=== PATIENT | female | born 1950 | race Caucasian/White ===

== ENCOUNTER → 2021-06-23 12:23 | Outpatient (CLI) | payer MEDICARE, OTHER, SELFPAY ==
--- NOTE | 2021-06-23 12:26 | DI.MRI.S_ITS ---
PROCEDURE: MR LUMBAR SPINE WO CON INDICATIONS: Spinal stenosis, lumbar region with neurogenic cla TECHNIQUE: Noncontrast sagittal T1 spin echo and T2 fast echo, sagittal STIR, axial T1 and T2 fast spin echo through the lumbar spine. In cases with scoliosis, additional coronal T2 fast spin echo may be performed. COMPARISON: None. FINDINGS: Moderate lumbar levoscoliosis with associated lateral listhesis is redemonstrated, better depicted on prior radiographs. Anterolisthesis of L3 on L4 measuring 3 millimeters and of L4 on L5 measuring 3 millimeters appears similar. Vertebral body heights maintained. No suspicious focal marrow signal abnormality. Mild discogenic marrow edema (Modic type 1 changes) at the opposing L1-L2 endplates. Normal position and appearance of the conus. Prevertebral and paraspinous soft tissues unremarkable. T12-L1: No spinal canal or neural foraminal stenosis. L1-L2: Disc bulge flattens the ventral thecal sac and mildly displaces the descending right L2 nerve roots within the right subarticular zone. Bulky facet hypertrophy and buckling of the ligamentum flavum further contribute to right subarticular zone stenosis. Foraminal components of the disc bulge and facet hypertrophy combine to produce moderate right and mild left neural foraminal stenosis. L2-L3: Bulky facet hypertrophy with facet effusions and subchondral cystic change. Disc bulge flattens the ventral thecal sac without mass effect upon the traversing L3 nerve roots. Foraminal components of the disc bulge and facet hypertrophy combine to produce mild bilateral neural foraminal stenosis. L3-L4: Disc bulge flattens the ventral thecal sac without mass effect upon the traversing L4 nerve roots. Foraminal components of the disc bulge and facet hypertrophy combine to produce severe right and mild left neural foraminal stenosis. Flattening of the exiting right L3 nerve root in the neural foramen. Bulky facet hypertrophy with subchondral cystic change. L4-L5: Disc bulge flattens and indents the ventral thecal sac with displacement of the descending L5 nerve roots in both subarticular zones. Bulky facet hypertrophy and buckling flavum further contribute to overall moderate spinal canal and severe subarticular zone stenosis. There is probable impingement of the descending left L5 nerve roots in the left subarticular zone due to effacement by disc and facet material. Foraminal components of the disc bulge and facet hypertrophy combine to produce severe left right neural foraminal stenosis. Flattening of the exiting left L4 nerve roots within the neural foramen. Small facet effusions and subchondral cystic change noted. There is also a synovial cyst arising from the medial margin of the left L4-L5 facet projecting into the left subarticular zone, measuring approximately 5 millimeters. L5-S1: No spinal canal stenosis. Mild right and severe left neural foraminal narrowing due to foraminal components of a diffuse disc bulge with flattening of the exiting left L5 nerve root. IMPRESSION: Multilevel multifactorial degenerative changes with considerable contribution from facet hypertrophy at multiple levels. Severe neural foraminal stenosis at multiple levels as described above. Moderate spinal canal stenosis at L4-L5. Dictated by: Tung Delgado M.D. on 06/23/2021 at 12:35 Approved by: Tung Delgado M.D. on 06/23/2021 at 12:43
== END ==
PROVIDERS: Family Provider Family Medicine; Referring Provider Physical Medicine & Rehabilitation; Visit Provider Physical Medicine & Rehabilitation
DX: M48.062 Spinal stenosis, lumbar region with neurogenic claudication (principal); M47.816 Spondylosis without myelopathy or radiculopathy, lumbar region
CPT/HCPCS: 72148

== ENCOUNTER → 2022-01-28 11:58 | Outpatient (CLI) | payer MEDICARE, OTHER, SELFPAY ==
--- NOTE | 2022-01-28 12:00 | DI.US.S_ITS ---
PROCEDURE: US THYROID INDICATIONS: POSSIBLE NODULE TECHNIQUE: Real-time scanning was performed of the thyroid gland, with image documentation. COMPARISON: [facility], US, THYROID, 04/24/2014, 13:51. FINDINGS: Right: Thyroid lobe measures 2.3 x 0.6 x 0.7 cm, and is diffusely heterogeneous in echotexture. Left: Thyroid lobe measures 2.6 x 0.7 x 0.5 cm, and is sleep heterogeneous in echotexture. Isthmus: 1.1 mm thick. IMPRESSION: 1. Diffusely diminutive/atrophic thyroid gland with morphology suggestive of exogenous thyroid hormone administration versus chronic longstanding thyroiditis. 2. No focal nodule. ACR TI-RADS definitions and recommendations: TI-RADS 1 (benign): 0 points. FNA not needed. TI-RADS 2 (not suspicious): 2 points. FNA not needed. TI-RADS 3 (mildly suspicious): 3 points. * FNA if 2.5 cm or larger, follow up if 1.5 cm or larger (at 1, 3, and 5 years). TI-RADS 4 (moderately suspicious): 4-6 points. * FNA if 1.5 cm or larger, follow up if 1 cm or larger (at 1, 2, 3, and 5 years). TI-RADS 5 (highly suspicious): 7 points or more. * FNA if 1 cm or larger, follow up if 0.5 cm or larger (every year for 5 years). Dictated by: Mabel Arias M.D. on 01/28/2022 at 16:51 Approved by: Mabel Arias M.D. on 01/28/2022 at 16:53
== END ==
PROVIDERS: Family Provider Family Medicine; Referring Provider Internal Medicine; Visit Provider Internal Medicine
DX: E03.9 Hypothyroidism, unspecified (principal); E04.1 Nontoxic single thyroid nodule
CPT/HCPCS: 76536

== ENCOUNTER → 2022-08-17 12:41 | Outpatient (ROUT) | payer MEDICARE, OTHER, SELFPAY ==
[2022-08-17 13:23] LABS: COVID-19 CEPHEID 4-PLEX PCR Negative (Negative); Influenza A - CEPHEID Flu A NEGATIVE (NEGATIVE); Influenza B - CEPHEID Flu B NEGATIVE (NEGATIVE); Respiratory Syncytial Virus Negative (Negative)
== END ==
PROVIDERS: Family Provider Family Medicine; Visit Provider Internal Medicine
DX: R05.9 Cough, unspecified (principal); J02.9 Acute pharyngitis, unspecified; R50.9 Fever, unspecified
CPT/HCPCS: 0241U

== ENCOUNTER → 2022-10-04 09:02 | Outpatient (CLI) | payer MEDICARE, OTHER, SELFPAY ==
--- NOTE | 2022-10-04 09:05 | DI.MRI.S_ITS ---
PROCEDURE: MR SHOULDER LT WO CON INDICATIONS: Unspecified rotator cuff tear or rupture TECHNIQUE: Noncontrast oblique coronal T2 fast spin echo with fat saturation, oblique sagittal T1 spin echo and T2 fast spin echo with fat saturation, axial T1 spin echo and T2 fast spin echo with fat saturation through the shoulder. COMPARISON: Non. FINDINGS: Image quality: Excellent. Rotator cuff: There is full-thickness tear of the supraspinatus and infraspinatus tendons with tendon retraction to the musculotendinous junction. There is moderate supraspinatus and infraspinatus tendons muscle atrophy. There is at least high-grade partial tear of the subscapularis tendon with severe tendinosis. Bones and bursae: No bone marrow contusions or fractures. Moderate acromioclavicular and glenohumeral joint degeneration. The acromion demonstrates conventional anatomy, without an os acromiale. There is moderate glenohumeral joint effusion. Capsule and soft tissues: There is global degenerative labral tear, most pronounced in the superior and posterior labrum. Tear of the transverse ligament at the bicipital groove. Moderate tendinosis of the long head of the biceps tendon which is dislocated anterior medially. The rotator interval is irregular. The coracohumeral ligament is thickened. IMPRESSION: 1. Full-thickness tear of the supraspinatus and infraspinatus tendons with tendon retraction and muscle atrophy. 2. At least high-grade partial tear and severe tendinosis of the subscapularis tendon. 3. Moderate tendinosis of the long head of the biceps tendon which is dislocated anterior medially. 4. Moderate acromioclavicular and glenohumeral joint degeneration. 5. Moderate glenohumeral joint effusion. 6. Global degenerative labral tear. Dictated by: Alhaji Nicole M.D. on 10/05/2022 at 7:53 Approved by: Alhaji Nicole M.D. on 10/05/2022 at 9:22
== END ==
PROVIDERS: Family Provider Family Medicine; Referring Provider Internal Medicine; Visit Provider Internal Medicine
DX: M75.122 Complete rotator cuff tear or rupture of left shoulder, not specified as traumatic (principal); M19.012 Primary osteoarthritis, left shoulder; M25.412 Effusion, left shoulder; S43.492A Other sprain of left shoulder joint, initial encounter
CPT/HCPCS: 73221

== ENCOUNTER → 2023-04-07 12:25 | Outpatient (CLI) | payer MEDICARE, OTHER, SELFPAY ==
--- NOTE | 2023-04-07 12:26 | DI.CT.S_ITS ---
PROCEDURE: CT CHEST W CON INDICATIONS: Chest wall pain TECHNIQUE: After the administration of intravenous contrast, 5 mm thick sections acquired from the pulmonary apices to the posterior costophrenic angles. 1 mm axial lung, 5 mm thick coronal and sagittal reformats and 7 mm axial MIP were acquired. For radiation dose reduction, the following was used: automated exposure control, adjustment of mA and/or kV according to patient size. COMPARISON: [facility], RG, XR RIBS UNILATERAL, 03/31/2023, 12:30. FINDINGS: Lungs and pleura: No consolidation , pleural effusion, or pneumothorax. A few pulmonary nodules are present for example 3 millimeter solid nodule inferior right upper lobe (3/127). 4 millimeter lingular nodule (3/141). Mediastinum: No pericardial effusion. No mediastinal or hilar adenopathy by size criteria. Thoracic aorta and central pulmonary arteries are normal in size. Esophagus is normal in caliber. Bones and chest wall: Multilevel degenerative change of the visualized spine. No acute displaced rib fracture identified. The lateral and anterior aspect of the left 11th rib is excluded from the field of view. The 12th rib is hypoplastic. No axillary or supraclavicular adenopathy by size criteria. Postsurgical changes of the left breast. The breasts are not well evaluated by CT. Abdomen: Visualized upper abdominal solid organs appear normal. Upper abdominal bowel loops are normal in caliber. IMPRESSION: 1. No acute displaced rib fracture identified. No pneumothorax. 2. A few small pulmonary nodules are present, nonspecific. Could consider imaging follow-up in 3-6 months or other interval at clinical discretion. Dictated by: Dev Hull M.D. on 04/08/2023 at 9:39 Approved by: Dev Hull M.D. on 04/08/2023 at 9:57
[2023-04-07 13:39] LABS: Estimated Glomerular Filt Rate > 60 mL/min (>60)
== END ==
PROVIDERS: Radiology Diagnostic Radiology; Family Provider Family Medicine; PCP Internal Medicine; Referring Provider Internal Medicine Medical Oncology; Visit Provider Internal Medicine Medical Oncology
DX: R07.9 Chest pain, unspecified (principal); R93.89 Abnormal findings on diagnostic imaging of other specified body structures; R91.8 Other nonspecific abnormal finding of lung field
CPT/HCPCS: 36415; 71260; 82565

== ENCOUNTER → 2023-04-20 14:19 | Outpatient (CLI) | payer MEDICARE, OTHER, SELFPAY ==
--- NOTE | 2023-04-20 14:24 | DI.RAD.S_ITS ---
PROCEDURE: XR FACIAL BONES MIN 3V INDICATIONS: facial injury TECHNIQUE: 3 views of the facial bones were acquired. COMPARISON: None. FINDINGS: Sinuses: Visualized sinuses demonstrate no air-fluid levels or mucosal thickening. Bones: No fractures. No suspicious bony lesions. Orbital rims and zygomatic arches appear intact. Soft tissues: No suspicious soft tissue densities. IMPRESSION: No displaced facial fracture. No If symptoms and/or clinical suspicion for injury/pathology persists, further assessment with CT should be considered. Dictated by: Tonya Cortés MD, PhD on 04/20/2023 at 15:23 Approved by: Tonya Cortés MD, PhD on 04/20/2023 at 15:24
== END ==
PROVIDERS: Family Provider Family Medicine; PCP Internal Medicine; Referring Provider Internal Medicine; Visit Provider Internal Medicine
DX: S09.93XA Unspecified injury of face, initial encounter (principal); X58.XXXA Exposure to other specified factors, initial encounter
CPT/HCPCS: 70150

== ENCOUNTER → 2023-06-29 11:29 | Outpatient (CLI) | payer MEDICARE, OTHER, SELFPAY ==
--- NOTE | 2023-06-29 | DI.RAD.S_ITS ---
PROCEDURE: XR CHEST 2V INDICATIONS: COUGH TECHNIQUE: 2 views of the chest were acquired. COMPARISON: [facility], CT, CT CHEST W CON, 04/07/2023, 13:51. FINDINGS: Surgical changes and devices: Clips are present overlying the left hemithorax. Lungs and pleura: Lungs are clear. No pleural effusions or pneumothorax. Mediastinum: Mediastinal contours are normal. Heart size is normal. Bones and chest wall: No suspicious bony abnormalities. Soft tissues appear unremarkable. Scoliotic curvature. IMPRESSION: No acute pulmonary process. Dictated by: Kaye Hinojosa M.D. on 06/29/2023 at 17:42 Approved by: Kaye Hinojosa M.D. on 06/29/2023 at 17:43
== END ==
PROVIDERS: Family Provider Family Medicine; PCP Internal Medicine; Referring Provider Internal Medicine; Visit Provider Internal Medicine
DX: R05.1 Acute cough (principal); B34.9 Viral infection, unspecified
CPT/HCPCS: 71046

== ENCOUNTER → 2023-08-10 14:27 | Outpatient (ROUT) | payer MEDICARE, OTHER, SELFPAY ==
[2023-08-10 15:19] LABS: Influenza A - CEPHEID Flu A NEGATIVE (NEGATIVE); Influenza B - CEPHEID Flu B NEGATIVE (NEGATIVE); Respiratory Syncytial Virus Negative (Negative)
[2023-08-10 15:27] LABS: COVID-19 CEPHEID 4-PLEX PCR Negative (Negative)
== END ==
PROVIDERS: Family Provider Family Medicine; PCP Internal Medicine; Visit Provider Internal Medicine
DX: R05.1 Acute cough (principal); J02.9 Acute pharyngitis, unspecified
CPT/HCPCS: 0241U

== ENCOUNTER → 2023-12-31 12:01 | Outpatient (CLI) | payer MEDICARE, OTHER, SELFPAY ==
--- NOTE | 2023-12-31 12:03 | DI.RAD.S_ITS ---
PROCEDURE: XR CERVICAL SPINE 4V OR 5V INDICATIONS: Neuralgia and neuritis, unspecified TECHNIQUE: 5 views of the cervical spine acquired. COMPARISON: None. FINDINGS: Bones: There is of normal cervical lordosis is seen. There is 2 mm anterolisthesis of C3 on C4 and C4 on C5. 2 mm retrolisthesis of C5 on C6 and 4 mm retrolisthesis of C6 on C7 is also seen. No acute fracture or dislocation. Loss of disc height, degenerative endplate changes and bilateral uncovertebral hypertrophic changes are noted throughout cervical spine most notably involving C5-6 level. Oblique images demonstrate right worse than left bilateral bony foraminal stenosis at C5-6 and C6-7 levels and right-sided bony foraminal stenosis at C4-5 level. Soft tissues: No prevertebral soft tissue swelling. IMPRESSION: Degenerative disc disease throughout cervical spine with grade 1 spondylolisthesis at C3-4 through C6-7 levels as above. No acute fracture or dislocation. Oblique views shows right worse than left bilateral bony foraminal stenosis in mid to lower cervical spine as described above. Dictated by: Tony Wallis M.D. on 12/31/2023 at 15:58 Approved by: Tony Wallis M.D. on 12/31/2023 at 16:34
== END ==
PROVIDERS: Family Provider Family Medicine; PCP Internal Medicine; Referring Provider Internal Medicine; Visit Provider Internal Medicine
DX: M79.2 Neuralgia and neuritis, unspecified (principal); M50.31 Other cervical disc degeneration, high cervical region; M48.02 Spinal stenosis, cervical region; M43.12 Spondylolisthesis, cervical region
CPT/HCPCS: 72050

== ENCOUNTER → 2024-01-31 11:45 | Outpatient (CLI) | payer MEDICARE, OTHER, SELFPAY ==
[2024-01-31 13:28] LABS: Add Manual Diff / Slide Review NO; Basophils Absolute Auto 0 /uL (0-100); Basophils Percent Auto 0.6 % (0-2); Eosinophils Absolute Auto 100 /uL (0-450); Eosinophils Percent Auto 1.9 % (2-4); Hematocrit 35.5 % (36-46); Hemoglobin 12.3 g/dL (12.0-16.0); Lymphocytes Absolute Auto 2100 /uL (1100-4500); Lymphocytes Percent Auto 37.2 % (25-40); Mean Corpuscular HGB Conc 34.7 % (30-36); Mean Corpuscular Hemoglobin 32.2 PG (26-34); Mean Corpuscular Volume 92.7 fL (80-100); Monocytes Absolute Auto 800 /uL (0-900); Monocytes Percent Auto 14.2 % (3-14); Neutrophils Absolute Auto 2600 /uL (1500-7000); Neutrophils Percent Auto 46.1 % (50-75); Platelet Count 321 X10^3/uL (150-400); Red Blood Cell Count 3.82 X10^6/uL (4.0-5.2); Red Cell Distribution Width 12.5 % (11.6-14.8); White Blood Cell Count 5.7 X10^3/uL (4.5-11.0)
[2024-01-31 14:14] LABS: BUN Creatinine Ratio 22.2 (6-22); Blood Urea Nitrogen 16 mg/dL (7-17); Carbon Dioxide 25 mmol/L (22-32); Chloride 96 mmol/L (98-107); Estimated Glomerular Filt Rate > 60 mL/min (>60); Glucose 89 mg/dL (80-110); HEMOLYSIS < 15 (0-50); Potassium 4.8 mmol/L (3.4-5.1); Sodium 130 mmol/L (137-145)
[2024-01-31 14:48] LABS: Prothrombin Time 11.4 SECONDS (9.4-12.5)
[2024-01-31 15:13] LABS: Free T3, Triiodothyronine Free 4.38 pg/mL (2.77-5.27); Free T4, Direct Thyroxine 0.44 ng/dL (0.78-2.19)
[2024-01-31 15:27] LABS: Thyroid Stimulating Hormone 0.157 uIU/mL (0.47-4.68)
== END ==
PROVIDERS: Orthopaedic Surgery; Family Provider Family Medicine; PCP Internal Medicine; Referring Provider Internal Medicine; Visit Provider Internal Medicine
DX: Z01.812 Encounter for preprocedural laboratory examination (principal); E03.9 Hypothyroidism, unspecified; M17.12 Unilateral primary osteoarthritis, left knee
CPT/HCPCS: 36415; 80048; 84439; 84443; 84481; 85025; 85610

== ENCOUNTER → 2024-03-13 12:08 | Outpatient (CLI) | payer MEDICARE, OTHER, SELFPAY ==
--- NOTE | 2024-03-13 12:10 | DI.RAD.S_ITS ---
PROCEDURE: XR SHOULDER RT MIN 2V INDICATIONS: Pain in right shoulder TECHNIQUE: 3 views of the shoulder were acquired. COMPARISON: None. FINDINGS: Bones: No fractures or dislocations. No suspicious bony lesions. Visualized ribs appear intact. Moderate to severe acromioclavicular as well as glenohumeral degenerative narrowing. Periarticular osteophytes are present. No erosions. Soft tissues: No suspicious soft tissue calcifications. IMPRESSION: Acromioclavicular and glenohumeral arthritic change. Dictated by: Kaye Hinojosa M.D. on 03/13/2024 at 17:15 Approved by: Kaye Hinojosa M.D. on 03/13/2024 at 17:16
== END ==
PROVIDERS: Family Provider Family Medicine; PCP Internal Medicine; Referring Provider Internal Medicine; Visit Provider Internal Medicine
DX: M25.511 Pain in right shoulder (principal)
CPT/HCPCS: 73030

== ENCOUNTER → 2024-03-27 09:54 | Outpatient (CLI) | payer MEDICARE, OTHER, SELFPAY ==
--- NOTE | 2024-03-27 | DI.RAD.S_ITS ---
PROCEDURE: XR DEXA AXIAL SKELETON INDICATIONS: HX OF OSTEOPENIA COMPARISON: None. FINDINGS: Lumbar Spine: L2-L3. Bone mineral density 1.159 g/cm2, T score 0.9. Left Hip: Bone mineral density 0.784 g/cm2, T score -1.3. Left Femoral Neck: Bone mineral density 0.739 g/cm2, T score -1.0. Right Hip: Bone mineral density 0.809 g/cm2, T score -1.1. Right Femoral Neck: Bone mineral density 0.728 g/cm2, T score -1.1. Fracture Risk Calculation (when applicable): 10-year fracture risk of a major osteoporotic fracture 9.7 percent and of a hip fracture 1.5 percent. (T score greater or equal to -1.0 to: NORMAL) (T score from -1.1 to -2.4: OSTEOPENIA) (T score less than or equal to -2.5: OSTEOPOROSIS) IMPRESSION: Osteopenia. Follow-up guidelines as follows: Osteoporosis: Consider a repeat DEXA and Vertebral Fracture Assessment (VFA) exam in 2 years or sooner if medically necessary, to reassess this patient's status. Osteopenia: Consider a repeat DEXA in 2-3 years to reassess this patient's status, or if there is a new clinical indication. Normal: Consider a repeat DEXA in 5 years or sooner, or if there is a new clinical indication. All treatment decisions require clinical judgment and consideration of individual patient factors, including patient preferences, comorbidities, previous drug use, risk factors not captured in the FRAX model (e.g., frailty, falls, vitamin D deficiency, increased bone turnover, interval significant decline in bone density ) and possible under- or over-estimation of fracture risk by FRAX. In addition, the NOF Guide recommends that FDA-approved medical therapies be considered in postmenopausal women and men age >= 50 years with a: * Hip or vertebral (clinical or morphometric) fracture * T-score of <=-2.5 at the spine or hip * Ten-year fracture probability by FRAX of >= 3% for hip fracture or >=20% for major osteoporotic fracture. People with diagnosed cases of osteoporosis or at high risk for fracture should have regular bone mineral density tests. For patients eligible for Medicare, routine testing is allowed once every 2 years. The testing frequency can be increased to one year for patients who have rapidly progressing disease, those who are receiving or discontinuing medical therapy to restore bone mass, or have additional risk factors. Dictated by: Jay Walter M.D. on 03/27/2024 at 20:36 Approved by: Jay Walter M.D. on 03/27/2024 at 20:38
== END ==
PROVIDERS: Family Provider Family Medicine; PCP Internal Medicine; Referring Provider Internal Medicine Medical Oncology; Visit Provider Internal Medicine Medical Oncology
DX: M85.89 Other specified disorders of bone density and structure, multiple sites (principal); C50.212 Malignant neoplasm of upper-inner quadrant of left female breast
CPT/HCPCS: 77080

== ENCOUNTER → 2024-05-23 11:48 | Outpatient (CLI) | payer MEDICARE, OTHER, SELFPAY ==
--- NOTE | 2024-05-23 11:49 | DI.US.S_ITS ---
PROCEDURE: US THYROID INDICATIONS: Hypothyroidism, unspecified TECHNIQUE: Real-time scanning was performed of the thyroid gland, with image documentation. COMPARISON: [facility], [place], US THYROID, 01/28/2022, 12:15. FINDINGS: Thyroid: Right lobe measures 3.5 x 1.0 x 1.1 cm. Left lobe measures 3.3 x 1.0 x 0.8 cm. Isthmus is 0.1 cm thick. Echotexture is heterogeneous. No focal defined lesion.. IMPRESSION: Heterogeneous thyroid without focal defined lesion. Dictated by: Kaye Hinojosa M.D. on 05/23/2024 at 16:37 Approved by: Kaye Hinojosa M.D. on 05/23/2024 at 16:41
== END ==
LOC: US 11:48
PROVIDERS: Family Provider Family Medicine; PCP Internal Medicine; Referring Provider Internal Medicine; Visit Provider Internal Medicine
DX: E03.9 Hypothyroidism, unspecified (principal); E04.1 Nontoxic single thyroid nodule; R76.8 Other specified abnormal immunological findings in serum
CPT/HCPCS: 76536